=== PATIENT | female | born 1940 | race Caucasian/White ===

== ENCOUNTER 2017-05-21 09:27 | Day surgery (SDC) | payer OTHER, BC ==
[2017-05-20 09:52] VITALS: BMI 22.6
[2017-05-21] MEDS ORDERED: PROPOFOL 20 ML ONE ×3 (10:52)
[2017-05-21] MEDS ORDERED: LIDOCAINE HCL/PF 2% SDV 5ML VIAL ONE (10:52)
[2017-05-21 11:53] VITALS: TEMP 97.7
[2017-05-21 14:40] VITALS: BP 142/77; PULSE 79
--- NOTE | 2017-05-27 09:45 | PATH ---
Surgical Pathology Report Patient Name: [facility]. Rec. #: [id number] /Age/Gender: 1940 (Age: 76) / F Account: [id number] Location: U-ENDOSCOPY Taken: 05/21/2017 Received: 05/21/2017 Reported: 05/27/2017 Physicians: Dashawn Day M.D. 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 DUODENUM, SITE OF PREVIOUS LYMPHOMA, BIOPSY: DUODENAL MUCOSA WITHOUT SIGNIFICANT PATHOLOGIC CHANGES NO HISTOLOGIC EVIDENCE OF GLUTEN SENSITIVE ENTEROPATHY (CELIAC DISEASE). C. ANASTOMOSIS SITE, BIOPSY: GASTRIC MUCOSA WITH MODERATE CHRONIC GASTRITIS AND MARKED REACTIVE GASTROPATHY WITH SURFACE EROSION AND ASSOCIATED ATTACHED INFLAMMATION. NEGATIVE FOR DYSPLASIA. IMMUNOSTAIN FOR H. PYLORI IS NEGATIVE FOR ORGANISMS. Comment: Specimen A has been seen for Hematopathology consultation by Dr. Flavio Valenzuela of [facility] in [place], [place] ([id number]). His report contains the following microscopic description: "Sections show fragments of duodenal mucosa with a prominent lymphoid infiltrate. The lymphoid cells have a nodular architecture with follicle formation. The follicles are compromised predominantly of small centrocytes with infrequent scattered centroblasts. Immunohistochemical stains are performed with appropriate controls. A stain for CD20 highlights the vast majority of lymphocytes, including follicles. The B-cells in the follicles co-express CD10, BCL-6, and BCL-2. They are negative for Cyclin-D1. Stains for CD3 and CD5 highlight scattered small T-cells. Stains for CD21 and CD23 highlight intact follicular dendritic meshworks. A stain for CD138 highlights occasional scattered plasma cells. A stain for Ki67 is positive in approximately 10% of the atypical follicular lymphocytes. In situ hybridization for University and Lambda light chains show the plasma cells to be polytypic." This case was discussed with Dr. Day on May 27, 2017. Electronically Signed Sukhwinder Gloria M.D. Gross Description A. Received in formalin, labeled "biopsy leukoplakia third portion duodenum" are 3 pedro, irregular portions of soft tissue ranging from 0.2-0.3 cm. in greatest dimension. The specimens are submitted in toto in one cassette. B. Received in formalin, labeled "biopsy duodenal site of previous lymphoma" are 5 pedro, irregular portions of soft tissue ranging from 0.3-0.4 cm. in greatest dimension. The specimens are submitted in toto in one cassette. C. Received in formalin, labeled "biopsy anastomosis site" are 4 pedro, irregular portions of soft tissue ranging from 0.2-0.5 cm. in greatest dimension. The specimens are submitted in toto in one cassette. 05/21/2017 [facility]05/21/2017
== END 2017-05-21 12:45 | disposition home or self-care (01) ==
LOC: JASU-ENDO 09:27
PROVIDERS: ATTEND Internal Medicine Gastroenterology
PROC: 0DB68ZX Excision of Stomach, Via Natural or Artificial Opening Endoscopic, Diagnostic (ICD-10-PCS; 2017-05-21)
PROC: 0DB98ZX Excision of Duodenum, Via Natural or Artificial Opening Endoscopic, Diagnostic (ICD-10-PCS; principal; 2017-05-21 10:30)
DX: C82.2 Follicular lymphoma grade III, unspecified (principal); Z85.09 Personal history of malignant neoplasm of other digestive organs; K29.50 Unspecified chronic gastritis without bleeding
CPT/HCPCS: 88305-TC; 88342-TC

== ENCOUNTER 2018-01-05 07:43 | Day surgery (SDC) | payer OTHER, BC ==
[2018-01-05 08:30] VITALS: BMI 22.6
[2018-01-05] MEDS ORDERED: PROPOFOL 20 ML ONE (08:34)
[2018-01-05 09:25] VITALS: TEMP 97.7
[2018-01-05 10:11] VITALS: BP 148/70; PULSE 68
--- NOTE | 2018-01-07 11:29 | PATH ---
Surgical Pathology Report Patient Name: [facility]. Rec. #: [id number] /Age/Gender: 1940 (Age: 77) / F Account: [id number] Location: [facility]-ENDOSCOPY Taken: 01/05/2018 Received: 01/05/2018 Reported: 01/07/2018 Physicians: Elinor Deng M.D. Specimen(s) Received A: BX DUODENUM B: ANASTOMOSIS Clinical History Duodenal lymphoma surveillance Postoperative diagnosis: No evidence of duodenal lymphoma status post patent anastomosis Final Diagnosis A. DUODENUM, BIOPSY: DUODENAL MUCOSA WITH NO PATHOLOGIC FINDINGS. NO EVIDENCE OF LYMPHOPROLIFERATIVE PROCESS/LYMPHOMA IN THIS MATERIAL. B. ANASTOMOSIS GASTROJEJUNUM, BIOPSY: GASTRIC MUCOSA SHOWING MINIMAL CHRONIC INFLAMMATION. IMMUNOSTAIN IS NEGATIVE FOR H. PYLORI ORGANISMS. Electronically Signed Lety Patel M.D. Gross Description A. Received in formalin, labeled "biopsy previous duodenal lymphoma site" are 4 pedro, irregular portions of soft tissue ranging from 0.1-0.5 cm. in greatest dimension. The specimens are submitted in toto in one cassette. B. Received in formalin, labeled "biopsy anastomosis gastrojejunal" are 5 pedro, irregular portions of soft tissue ranging from 0.2-0.4 cm. in greatest dimension. The specimens are submitted in toto in one cassette. 01/05/201801/05/2018
== END 2018-01-05 10:20 | disposition home or self-care (01) ==
LOC: JASU-ENDO 07:43
PROVIDERS: ATTEND Internal Medicine Gastroenterology
PROC: 0DBA8ZX Excision of Jejunum, Via Natural or Artificial Opening Endoscopic, Diagnostic (ICD-10-PCS; 2018-01-05)
PROC: 0DB98ZX Excision of Duodenum, Via Natural or Artificial Opening Endoscopic, Diagnostic (ICD-10-PCS; principal; 2018-01-05 09:00)
DX: Z08 Encounter for follow-up examination after completed treatment for malignant neoplasm (principal); Z85.068 Personal history of other malignant neoplasm of small intestine; E78.5 Hyperlipidemia, unspecified; Z85.3 Personal history of malignant neoplasm of breast; Z85.028 Personal history of other malignant neoplasm of stomach; K44.9 Diaphragmatic hernia without obstruction or gangrene; K21.9 Gastro-esophageal reflux disease without esophagitis; Z90.3 Acquired absence of stomach [part of]; K76.0 Fatty (change of) liver, not elsewhere classified; M85.80 Other specified disorders of bone density and structure, unspecified site; E11.9 Type 2 diabetes mellitus without complications; Z90.11 Acquired absence of right breast and nipple
CPT/HCPCS: 88305-TC; 88342-TC